=== PATIENT | female | born 1990 | race Caucasian/White ===

== ENCOUNTER 2019-06-08 08:50 | Emergency (ER) | payer SELFPAY ==
[~2019-06-08] VITALS: Ht 154.9 cm; Wt 61.0 kg
[2019-06-08] MEDS ORDERED: KETOROLAC 30MG/ML VIAL IM ONE (11:00)
[2019-06-08 11:39] LABS: CHLORIDE 106 mEq/L (98-107)
[2019-06-08] MEDS ORDERED: IOHEXOL-300 100 ML BOTTLE ONE (12:09)
[2019-06-08 13:00] VITALS: BP 125/67
== END 2019-06-08 13:00 | disposition home or self-care (01) ==
LOC: ER 08:50
DX: M25.511 Pain in right shoulder (principal); M54.2 Cervicalgia; R10.11 Right upper quadrant pain; R10.31 Right lower quadrant pain; R07.89 Other chest pain; Z90.49 Acquired absence of other specified parts of digestive tract; V49.59XA Passenger injured in collision with other motor vehicles in traffic accident, initial encounter; Y93.89 Activity, other specified; Y92.89 Other specified places as the place of occurrence of the external cause; Y99.8 Other external cause status; Z88.8 Allergy status to other drugs, medicaments and biological substances
CPT/HCPCS: 36415; 71045; 73030; 74177; 80048; 81025; 93005; 96372; 99284; J1885; Q9967

== ENCOUNTER 2021-11-08 21:35 | Emergency (ER) | payer MEDICAID ==
[~2021-11-08] VITALS: Ht 154.9 cm; Wt 61.0 kg
[2021-11-08 21:38] VITALS: BP 119/82
[2021-11-09] MEDS ORDERED: IBUP-2029 MT (00:57)
== END 2021-11-09 01:11 | disposition home or self-care (01) ==
LOC: ER 21:35
DX: R07.9 Chest pain, unspecified (principal); R09.1 Pleurisy; J45.909 Unspecified asthma, uncomplicated; Z98.890 Other specified postprocedural states
CPT/HCPCS: 71045; 93005; 99283

== ENCOUNTER 2023-10-09 06:17 | Emergency (ER) | payer MEDICAID ==
[~2023-10-09] VITALS: Ht 172.7 cm; Wt 62.0 kg
[~2023-10-09 06:17] MED LIST: IBUP-2029 MT
[2023-10-09 06:21] VITALS: O2SAT 99
[2023-10-09] MEDS ORDERED: ACETAMINOPHEN 325MG TABLET PO ONE (06:30)
[2023-10-09] MEDS ORDERED: LORAZEPAM 1MG TABLET PO ONE (06:30)
[2023-10-09 07:18] LABS: BASOPHILS % 0.2 % (0.0-2.0); EOSINOPHILS % 0.4 % (0.0-5.0); HEMATOCRIT. 41.3 % (36.0-48.0); HEMOGLOBIN. 13.3 g/dL (12.0-16.0); LYMPHOCYTES % 8.4 % (20.0-50.0); MEAN CORPUSCULAR HGB CONC 32.2 g/dL (31.0-37.0); MEAN CORPUSCULAR VOLUME 89.9 fL (81.0-99.0); MEAN PLATELET VOLUME 7.3 fl (7.4-10.4); MONOCYTES % 2.6 % (2.0-8.0); NEUTROPHILS % 88.4 % (40.0-76.0); PLATELET 296 x1000/uL (130-400); RED BLOOD CELL COUNT 4.59 mill/uL (4.2-5.4); RED CELL DISTRIBUTION WIDTH 13.3 % (11.6-14.6); WHITE BLOOD COUNT 15.4 x1000/uL (4.5-11.0)
[2023-10-09 07:50] LABS: ALANINE AMINOTRANSFERASE 25 IU/L (10-49); ALBUMIN 4.5 g/dL (3.2-4.8); ASPARTATE AMINOTRANSFERASE 22 IU/L (<34); CALCIUM 9.5 mg/dL (8.7-10.4); CARBON DIOXIDE 26 mEq/L (21-32); CHLORIDE 106 mEq/L (98-107); CREATININE 0.6 mg/dL (0.6-1.0); GLUCOSE 149 mg/dL (70-105); POTASSIUM 3.7 mEq/L (3.5-5.1); PROTEIN TOTAL 7.5 g/dL (6.0-8.3); SODIUM 140 mEq/L (136-145); UREA NITROGEN BLOOD 10 mg/dL (9-23)
[2023-10-09 07:51] LABS: TROPONIN I HIGH SENSITIVITY < 4 ng/L (3.0-34)
[2023-10-09] MEDS ORDERED: IBUP-1523 MT (10:04)
[2023-10-09] MEDS ORDERED: TOPUD MT (10:04)
[2023-10-09] MEDS ORDERED: [UNRECOGNIZED DRUG - CODE] PO (10:04)
[2023-10-09] MEDS ORDERED: ACETAMINOPHEN 325MG TABLET PO NR (10:30)
[2023-10-09] MEDS ORDERED: LORAZEPAM 1MG TABLET PO NR (10:30)
[2023-10-09 10:33] VITALS: BP 114/77; PULSE 93; RESP 17; TEMP 97.8
== END 2023-10-09 10:41 | disposition home or self-care (01) ==
LOC: ER 06:41
DX: M43.6 Torticollis (principal); J45.909 Unspecified asthma, uncomplicated; Z90.49 Acquired absence of other specified parts of digestive tract
CPT/HCPCS: 80053; 83880; 85025; 84484; 36415; 71045; 93005; 99285; Z7610